=== PATIENT | female | born 1995 | race Caucasian/White ===

== ENCOUNTER 2017-03-31 11:22 | Outpatient (CLI) | payer OTHER ==
[2017-03-31] VITALS (7 sets, daily range): BP systolic 102–115; BP diastolic 61–71; PULSE 77–85; TEMP 98
[~2017-03-31] VITALS: Ht 165.1 cm; Wt 85.5 kg
[2017-03-31] MEDS ORDERED: PRENATAL MVI (11:42)
== END 2017-03-31 16:30 | disposition home or self-care (01) ==
LOC: LDRO 11:22
DX: O62.9 Abnormality of forces of labor, unspecified (principal); Z3A.29 29 weeks gestation of pregnancy

== ENCOUNTER 2017-04-04 09:35 | Inpatient (IN) | payer OTHER ==
[~2017-04-04] VITALS: Ht 165.1 cm; Wt 85.5 kg
[2017-04-04] VITALS (14 sets, daily range): BP systolic 104–148; BP diastolic 55–701; PULSE 72–87; TEMP 97.4–98.6
[~2017-04-04 09:35] MED LIST: PRENATAL MVI
[2017-04-04 10:39] LABS: BASO % 0.3 % (0.0-2.0); EOS # 0.1 (0.0-0.7); EOS % 0.9 % (0-4.0); GRAN # 8.3 (1.4-6.5); GRAN % 67.2 % (42.2-75.2); LYMPH % 24.3 % (20.0-51.0); MEAN CELL VOLUME 81 fl (80.0-100.0); MEAN CORPUSCULAR HGB CONC 32 g/dl (33.0-37.0); MEAN PLATELET VOLUME 10.8 fl (7.4-10.4); MONO # 0.7 (0.1-0.6); PLATELET COUNT 271 K/mm3 (130-400); RED BLOOD COUNT 4.27 M/mm3 (4.10-5.30); WHITE BLOOD COUNT 12.3 K/mm3 (4.8-10.8)
[2017-04-04 10:40] LABS: HEMATOCRIT 34.6 % (37.0-47.0); HEMOGLOBIN 11.1 g/dl (12.5-16.0); MEAN CORPUSCULAR HEMOGLOBIN 26 pg (27.0-31.0)
[2017-04-05 08:10] VITALS: BP 102/58; PULSE 77; TEMP 97.6
[2017-04-05] MEDS ORDERED: PERCOCET 325 MG1 TA2 PO (10:26)
[2017-04-05] MEDS ORDERED: IBU800 M1 PO (10:26)
[2017-04-05 17:01] VITALS: BP 106/64; PULSE 77; TEMP 97.8
[2017-04-05 20:00] VITALS: BP 114/56; PULSE 72; TEMP 97.5
[2017-04-06 08:35] VITALS: BP 114/69; PULSE 77; TEMP 98.7
== END 2017-04-06 11:45 | disposition home or self-care (01) | DRG 775 ==
LOC: LDRO 09:35 → LDR 09:40 → OB 09:40
PROVIDERS: Obstetrics & Gynecology
PROC: 10E0XZZ Delivery of Products of Conception, External Approach (ICD-10-PCS; principal; 2017-04-04)
PROC: 0KQM0ZZ Repair Perineum Muscle, Open Approach (ICD-10-PCS; 2017-04-04)
PROC: 0UQMXZZ Repair Vulva, External Approach (ICD-10-PCS; 2017-04-04)
DX: O99.824 Streptococcus B carrier state complicating childbirth (principal); O70.1 Second degree perineal laceration during delivery; O71.82 Other specified trauma to perineum and vulva; Z3A.39 39 weeks gestation of pregnancy; Z37.0 Single live birth
CPT/HCPCS: J2405; J2540; J2590; J7120